=== PATIENT | male | born 1985 | race Two or more races ===

== ENCOUNTER 2023-04-04 08:32 | Inpatient (IN) | payer OTHER ==
[~2023-04-04] VITALS: Ht 175.3 cm; Wt 102.1 kg
[2023-04-04 09:00] VITALS: PULSE 102; RESP 18; O2SAT 92
[2023-04-04 09:07] LABS: Urine Bacteria NONE SEEN /hpf (None Seen); Urine Blood Negative /uL (Negative); Urine Clarity Clear (Clear); Urine Protein, UAD Negative (Negative); Urine Specific Gravity 1.024 (1.001-1.035); Urine Urobilinogen Normal (Negative); Urine WBC <1 /hpf (0 - 3); Urine pH 5.5 (5.0-8.0)
[2023-04-04 09:08] LABS: Urine Color Straw (Yellow)
[2023-04-04 09:09] LABS: Basophils # (auto) 0.1 10 ^3/uL (0-0.2); Basophils % (auto) 0.9 % (0.0-2.0); Eosinophils # (auto) 0.1 10 ^3/uL (0-0.8); Eosinophils % (auto) 0.6 % (0.0-7.0); Hematocrit 52.1 % (41.0-53.0); Hemoglobin 17.3 g/dL (13.5-17.5); Lymphocytes # (auto) 1.9 10 ^3/uL (0.4-5.4); Lymphocytes % (auto) 12.4 % (10.0-50.0); Mean Corpuscular Hemoglobin 28.3 pg (28.0-32.0); Mean Corpuscular Hgb Conc. 33.1 g/dL (32.0-36.0); Mean Corpuscular Volume 85.4 fL (80.0-100.0); Monocytes # (auto) 0.7 10 ^3/uL (0-1.3); Monocytes % (auto) 4.5 % (0.0-12.0); Neutrophils # (auto) 12.6 10 ^3/uL (1.6-8.6); Neutrophils % (auto) 81.6 % (37.0-80.0); Red Cell Distribution Width 15.1 % (11.8-14.3); White Blood Cell 15.4 10^3/uL (4.4-10.8)
[2023-04-04 09:14] LABS: Base Excess -5.5 mmol/L (-2.0-2.0)
[2023-04-04] MEDS ORDERED: SODIUM CHLORIDE 0.9% 1,000 ML IV ONE (09:15)
[2023-04-04] MEDS ORDERED: SODIUM CHLORIDE 0.9% 500 ML IV ONE ×2 (09:15→22:45)
[2023-04-04] MEDS ORDERED: ONDANSETRON HCL 4 MG/2 ML VIAL IV ONE (09:30)
[2023-04-04 09:33] LABS: Salicylate < 3.0 mg/dL (2.8-20.0)
[2023-04-04 10:00] LABS: Amphetamine Screen, Urine Neg (NEGATIVE)
[2023-04-04 10:01] LABS: Barbiturate Scree,Urine Neg (NEGATIVE); Benzodiazephine Screen, Urine Neg (NEGATIVE); Cocaine Screen, Urine Neg (NEGATIVE)
[2023-04-04 10:02] LABS: Opiate Scree,Urine Neg (NEGATIVE); Phencyclidine Screen, Urine Neg (NEGATIVE)
[2023-04-04 10:03] LABS: Cannabinoid Screen, Urine Neg (NEGATIVE)
[2023-04-04] MEDS ORDERED: PIPERACILLIN-TAZO 4.5GM 100 ML IV ONE (10:45)
[2023-04-04 11:24] LABS: Alanine Aminotransferase 35 U/L (7-40); Albumin 4.4 g/dL (3.2-4.8); Alkaline Phosphatase 102 U/L (46-116); Anion Gap 10 (5-15); Aspartate Aminotransferase 23 U/L (13-40); BUN/Creatinine Ratio 20.6 (10.0-20.0); Bilirubin, Total 0.8 mg/dL (0.2-1.0); Blood Urea Nitrogen 28 mg/dL (9-23); Calcium 9.4 mg/dL (8.5-10.1); Carbon Dioxide 20 mmol/L (20-30); Chloride 99 mmol/L (98-107); Sodium 129 mmol/L (136-145); Total Protein 7.1 g/dL (5.7-8.2)
[2023-04-04] MEDS ORDERED: DOCUSATE SOD 100 MG CAP PO PRN (11:30)
[2023-04-04] MEDS ORDERED: MORPHINE SULFATE INJ 2 MG/ml SYRG IV PRN (11:30)
[2023-04-04] MEDS ORDERED: HYDROmorphone HCL 2 MG/ML VL/or syr IV PRN (11:30)
[2023-04-04] MEDS ORDERED: ONDANSETRON HCL 4 MG/2 ML VIAL IV PRN (11:30)
[2023-04-04] MEDS ORDERED: NITROGLYCERIN 0.4 MG SL TAB SL PRN (11:30)
[2023-04-04] MEDS ORDERED: ACETAMINOPHEN 325 MG TAB PO PRN (11:30)
[2023-04-04 11:32] LABS: Glucose 619 mg/dL (74-106); Potassium 6.5 mmol/L (3.5-5.1)
[2023-04-04 11:44] LABS: Lipase 33 U/L (12-53)
[2023-04-04] MEDS ORDERED: FUROSEMIDE 20 MG/2 ML VIAL IV ONE (11:45)
[2023-04-04] MEDS ORDERED: InsuLIN REG 1unit/0.01ml Soln (100units/ml) IV ONE ×2 (11:45)
[2023-04-04] MEDS ORDERED: ALBUTEROL SULF 2.5 MG/0.5ML(0.5%) NEB SOLN NEB ONE ×2 (11:45→12:00)
[2023-04-04] MEDS ORDERED: SODIUM ZIRCONIUM CYCL 10 GM PAK PO ONE (11:45)
[2023-04-04] MEDS ORDERED: CALCIUM GLUC 1,000mg/50ml-NS 50 ML IV ONE (11:45)
[2023-04-04] MEDS ORDERED: VANCOMYCIN 1GM/250ML 250 ML IV ONE (12:00)
[2023-04-04] MEDS ORDERED: VANCOMYCIN PER PHARMACY 0 MG IV SCH (13:45)
[2023-04-04] MEDS ORDERED: DEXTROSE (50%) 50ML SYRG IV PRN (13:45)
[2023-04-04] MEDS ORDERED: SODIUM BICARBONATE 8.4 % INJ 50ML VIAL IV ONE (13:45)
[2023-04-04] MEDS ORDERED: INSULIN LANTUS (GLARGINE) 1 /0.01ml (100units/ml) SC ONE (13:45)
[2023-04-04] MEDS: FAMOTIDINE (10MG/ML) 2ML VL IV SCH ×2 (15:00→22:46)
[2023-04-04] MEDS: InsuLIN R (HUMAN) 100 UNITS in SODIUM CHL 0.9% 99 ML IV SCH ×3 (15:24→18:39)
[2023-04-04] MEDS: ACCU-CHEK COMFORT CURVE STRIP VI SCH ×5 (15:24→21:00)
[2023-04-04] MEDS: D5W/SOD CHLO 0.9% 1,000 ML IV SCH ×2 (17:24→21:45)
[2023-04-04] MEDS: cefTRIAXone 1GM/50ML D5W 50 ML IV SCH (18:50)
[2023-04-04 19:45] VITALS: PULSE 117; RESP 17; O2SAT 93
[2023-04-04 20:19] LABS: Chloride 97 mmol/L (98-107); Potassium 4.2 mmol/L (3.5-5.1); Sodium 129 mmol/L (136-145)
[2023-04-04 20:20] LABS: Anion Gap 13 (5-15); Carbon Dioxide 19 mmol/L (20-30)
[2023-04-04 20:21] LABS: Calcium 8.7 mg/dL (8.7-10.4)
[2023-04-04 20:25] LABS: BUN/Creatinine Ratio 14.6 (10.0-20.0); Blood Urea Nitrogen 22 mg/dL (9-23)
[2023-04-04 20:51] LABS: Glucose 345 mg/dL (74-106)
[2023-04-05] MEDS: ACCU-CHEK COMFORT CURVE STRIP VI SCH ×6 (00:07→19:53)
[2023-04-05] MEDS: InsuLIN REG 1unit/0.01ml Soln (100units/ml) SC SCH ×6 (00:08→19:54)
[2023-04-05] MEDS: VANCOMYCIN 750mg/250ml 250 ML IV SCH ×2 (02:12→15:06)
[2023-04-05 05:00] VITALS: BP 149/85; PULSE 99; RESP 18; TEMP 97.8; O2SAT 97
[2023-04-05 06:15] LABS: Chloride 105 mmol/L (98-107); Potassium 3.7 mmol/L (3.5-5.1); Sodium 138 mmol/L (136-145)
[2023-04-05 06:16] LABS: Anion Gap 7 (5-15); Carbon Dioxide 26 mmol/L (20-30)
[2023-04-05 06:17] LABS: Calcium 8.8 mg/dL (8.5-10.1)
[2023-04-05 06:21] LABS: Blood Urea Nitrogen 16 mg/dL (9-23); Glucose 102 mg/dL (74-106)
[2023-04-05 08:00] VITALS: BP 132/84; PULSE 106; PULSE 82; PULSE 94; RESP 18; RESP 20; TEMP 97.7; O2SAT 95; O2SAT 96
[2023-04-05] MEDS: FAMOTIDINE (10MG/ML) 2ML VL IV SCH ×2 (09:44→22:12)
[2023-04-05] MEDS: cefTRIAXone 1GM/50ML D5W 50 ML IV SCH (09:44)
[2023-04-05] MEDS: ENOXAPARIN SOD 40 MG/0.4 ML SYRINGE SC SCH (09:45)
[2023-04-05 11:27] LABS: Triglycerides 139 mg/dL (< 150)
[2023-04-05 11:28] LABS: LDL Cholesterol 127 mg/dL (< 100)
[2023-04-05 11:29] LABS: Cholesterol 186 mg/dL (< 200); HDL Cholesterol 47 mg/dL (40-59); Hematocrit 45.5 % (41.0-53.0); Hemoglobin 15.1 g/dL (13.5-17.5); Mean Corpuscular Hemoglobin 28.2 pg (28.0-32.0); Mean Corpuscular Hgb Conc. 33.2 g/dL (32.0-36.0); Red Blood Cells 5.35 10^6/uL (4.5-5.90); White Blood Cell 13.2 10^3/uL (4.4-10.8)
[2023-04-05 11:37] LABS: Basophils % (manual) 0 (0.0-2.0); Blast Cells 0; Eosinophils % (manual) 0 (0-7); Myelocytes % 0; Promyelocytes % 0; Reactive Lymphocytes 0
[2023-04-05 11:58] LABS: Band Neutrophils % (manual) 5; Lymphocytes % (manual) 20 (10.0-50.0); Metamyelocytes % 1; Monocytes % (manual) 9 (0-12)
[2023-04-05 11:59] LABS: Platelet Estimate Adequate
[2023-04-05 12:00] VITALS: BP 175/87; PULSE 100; RESP 18; TEMP 98.4; O2SAT 96
[2023-04-05] MEDS: INSULIN LANTUS (GLARGINE) 1 /0.01ml (100units/ml) SC SCH (13:13)
[2023-04-05 16:00] VITALS: BP 170/92; PULSE 88; RESP 21; TEMP 98.2; O2SAT 96
[2023-04-05] MEDS ORDERED: ERGOCALCIFEROL 50,000 UNIT(1.25MG) CAP PO SCH (19:45)
[2023-04-05 20:00] VITALS: PULSE 97; O2SAT 96
[2023-04-05 22:00] VITALS: BP 187/106; PULSE 78; RESP 17; TEMP 97.6; O2SAT 97
[2023-04-05] MEDS ORDERED: ATORVASTATIN 20 MG TAB PO SCH (22:00)
[2023-04-05] MEDS ORDERED: METOPROLOL TARTRATE 25 MG TAB PO SCH (22:00)
[2023-04-05] MEDS ORDERED: ENALAPRIL MALEATE 2.5 MG TAB PO SCH (22:00)
[2023-04-06] MEDS: ACCU-CHEK COMFORT CURVE STRIP VI SCH ×4 (00:12→12:00)
[2023-04-06] MEDS: InsuLIN REG 1unit/0.01ml Soln (100units/ml) SC SCH ×4 (00:18→12:00)
[2023-04-06] MEDS: VANCOMYCIN 750mg/250ml 250 ML IV SCH ×2 (01:54→14:00)
[2023-04-06 05:00] VITALS: BP 151/91; PULSE 77; RESP 17; TEMP 97.7; O2SAT 97
[2023-04-06 06:55] LABS: Basophils # (auto) 0 10 ^3/uL (0-0.2); Basophils % (auto) 0.4 % (0.0-2.0); Eosinophils # (auto) 0.2 10 ^3/uL (0-0.8); Eosinophils % (auto) 1.9 % (0.0-7.0); Hematocrit 45.2 % (41.0-53.0); Hemoglobin 15.2 g/dL (13.5-17.5); Lymphocytes # (auto) 2.6 10 ^3/uL (0.4-5.4); Lymphocytes % (auto) 26.9 % (10.0-50.0); Mean Corpuscular Hemoglobin 28.6 pg (28.0-32.0); Mean Corpuscular Hgb Conc. 33.7 g/dL (32.0-36.0); Monocytes # (auto) 0.9 10 ^3/uL (0-1.3); Monocytes % (auto) 9.5 % (0.0-12.0); Neutrophils # (auto) 5.8 10 ^3/uL (1.6-8.6); Neutrophils % (auto) 61.3 % (37.0-80.0); Nucleated Red Blood Cells % 0.2 %; Red Blood Cells 5.32 10^6/uL (4.5-5.90); Red Cell Distribution Width 14.3 % (11.8-14.3); White Blood Cell 9.5 10^3/uL (4.4-10.8)
[2023-04-06] MEDS ORDERED: hydrALAZINE HCL 20 MG/ML VL IV PRN (07:00)
[2023-04-06 07:08] LABS: Alanine Aminotransferase 21 U/L (7-40); Albumin 3.8 g/dL (3.2-4.8); Alkaline Phosphatase 57 U/L (46-116); Anion Gap 7 (5-15); Aspartate Aminotransferase 19 U/L (13-40); BUN/Creatinine Ratio 9.8 (10.0-20.0); Bilirubin, Total 0.8 mg/dL (0.2-1.0); Blood Urea Nitrogen 8 mg/dL (9-23); Calcium 8.7 mg/dL (8.5-10.1); Carbon Dioxide 24 mmol/L (20-30); Chloride 105 mmol/L (98-107); Glucose 89 mg/dL (74-106); Potassium 3.5 mmol/L (3.5-5.1); Sodium 136 mmol/L (136-145); Total Protein 6.3 g/dL (5.7-8.2)
[2023-04-06 07:23] LABS: Free T3 2.62 pg/mL (2.3-4.2)
[2023-04-06 07:24] LABS: Free T4 (Free Thyroxine) 0.92 ng/dL (0.89-1.76)
[2023-04-06 08:00] VITALS: PULSE 70; PULSE 89; RESP 19; O2SAT 96
[2023-04-06 09:00] VITALS: BP 139/77; PULSE 89; RESP 20; TEMP 97.8; O2SAT 96
[2023-04-06] MEDS: cefTRIAXone 1GM/50ML D5W 50 ML IV SCH (09:04)
[2023-04-06] MEDS ORDERED: ATO40T PO (09:16)
[2023-04-06] MEDS ORDERED: ENAL1TAB48 PO (09:16)
[2023-04-06] MEDS ORDERED: METO25TA93 PO (09:16)
[2023-04-06] MEDS ORDERED: INSLANTI SC (09:16)
[2023-04-06] MEDS ORDERED: LEVE500T40 PO (09:16)
[2023-04-06] MEDS ORDERED: ENALAPRIL MALEATE 2.5 MG TAB PO SCH (10:00)
[2023-04-06] MEDS ORDERED: ASPirin 81 mg TAB PO SCH (10:00)
[2023-04-06] MEDS ORDERED: ASPI1TAB20 PO (10:08)
[2023-04-06] MEDS: ENOXAPARIN SOD 40 MG/0.4 ML SYRINGE SC SCH (12:02)
[2023-04-06] MEDS: FAMOTIDINE (10MG/ML) 2ML VL IV SCH (12:02)
[2023-04-06] MEDS: INSULIN LANTUS (GLARGINE) 1 /0.01ml (100units/ml) SC SCH (12:13)
[2023-04-06 13:24] VITALS: BP 151/79; PULSE 78; TEMP 36.6
== END 2023-04-06 13:00 | disposition home or self-care (01) | DRG 420 ==
LOC: EDBD 08:32 → ER 08:32 → TELE 11:33 → TELE-EAST 04-05 02:40
PROVIDERS: ADMIT Internal Medicine Geriatric Medicine; ATTEND Internal Medicine Geriatric Medicine
DX: E11.10 Type 2 diabetes mellitus with ketoacidosis without coma (principal); D72.829 Elevated white blood cell count, unspecified; E86.0 Dehydration; G40.909 Epilepsy, unspecified, not intractable, without status epilepticus; I10 Essential (primary) hypertension; F17.210 Nicotine dependence, cigarettes, uncomplicated; I25.10 Atherosclerotic heart disease of native coronary artery without angina pectoris; E87.5 Hyperkalemia; M75.02 Adhesive capsulitis of left shoulder
CPT/HCPCS: 36415; 36600; 71045; 73030; 80048; 80053; 80061; 80202; 80307; 80320; 80329; 81001; 82010; 82140; 82306; 82542; 82607; 82805; 82962; 83036; 83605; 83690; 84132; 84439; 84443; 84481; 85007; 85025; 85027; 87040; 87086; 93005; 93306; 94640; 96361; 96365; 96367; 96375; G0378; J0696; J1815; J2405; J2543; J3490; J7060